=== PATIENT | female | born 1990 | race Caucasian/White ===

== ENCOUNTER 2016-10-26 14:54 | Emergency (ER) | payer OTHER ==
[~2016-10-26] VITALS: Ht 165.1 cm; Wt 68.0 kg
[2016-10-26] MEDS ORDERED: NS IV 1000 ML 1,000 ML IV SCH (16:00)
--- NOTE | 2016-10-26 16:05 | ED Abdominal Pain ---
General Stated Complaint: ABD PAIN Source of Information: Patient Exam Limitations: No Limitations History of Present Illness Time Seen By Provider: 16:02 Initial Comments To ER with reports of bilateral lower quadrant abdominal pain. This is been ongoing off and on for the past month and seems to be worsened by eating. She was seen at [facility] about a week ago and was told this was likely enteritis. They've been following the dietary restrictions and the recommendations from [place] but they deny any improvement. She states that her menstrual period was most recently earlier this month. She has occasional associated nausea without vomiting. Occasional constipation but none lately and no diarrhea. No dysuria and no vaginal discharge. Severity/Quality: Moderate Radiation: No Radiation Activities at Onset: None Associated Symptoms: Nausea/Vomiting Allergies and Home Medications Allergies Coded Allergies: No Known Drug Allergies (Unverified , 10/26/16) Review of Systems Constitutional: see HPI, No chills, No fever EENTM: No Symptoms Reported Respiratory: No Symptoms Reported Cardiovascular: No Symptoms Reported Gastrointestinal: See HPI, Abdominal Pain Genitourinary: No Symptoms Reported Musculoskeletal: no symptoms reported Skin: no symptoms reported Psychiatric/Neurological: No Symptoms Reported Endocrine: No Symptoms Reported Hematologic/Lymphatic: No Symptoms Reported Past Ietxqnl-Mtnvtk-Btgprd Hx Patient Social History Recent Foreign Travel: No Contact w/Someone Who Travel: No Physical Exam Vital Signs VS - Last 72 Hours, by Label 10/26/16 15:50 Temp 97.5 Pulse 80 Resp 20 B/P (MAP) 110/59 Pulse Ox 100 O2 Delivery Room Air Capillary Refill : General Appearance: WD/WN, no apparent distress HEENT: PERRL/EOMI, normal ENT inspection Neck: non-tender, full range of motion Respiratory: no respiratory distress, no accessory muscle use Cardiovascular: regular rate, rhythm, no murmur Gastrointestinal: normal bowel sounds, soft, tenderness Extremities: normal range of motion, non-tender Neurologic/Psychiatric: alert, normal mood/affect, oriented x 3 Skin: normal color, warm/dry Progress/Results/Core Measures Results/Orders Lab Results Laboratory Tests Test 10/26/16 15:53 10/26/16 17:15 Range/Units White Blood Count 8.5 4.3-11.0 10^3/uL Red Blood Count 5.24 4.35-5.85 10^6/uL Hemoglobin 15.6 11.5-16.0 G/DL Hematocrit 47 35-52 % Mean Corpuscular Volume 89 80-99 FL Mean Corpuscular Hemoglobin 30 25-34 PG Mean Corpuscular Hemoglobin Concent 34 32-36 G/DL Red Cell Distribution Width 12.7 10.0-14.5 % Platelet Count 209 130-400 10^3/uL Mean Platelet Volume 9.8 7.4-10.4 FL Neutrophils (%) (Auto) 67 42-75 % Lymphocytes (%) (Auto) 24 12-44 % Monocytes (%) (Auto) 8 0-12 % Eosinophils (%) (Auto) 1 0-10 % Basophils (%) (Auto) 0 0-10 % Neutrophils # (Auto) 5.8 1.8-7.8 X 10^3 Lymphocytes # (Auto) 2.0 1.0-4.0 X 10^3 Monocytes # (Auto) 0.7 0.0-1.0 X 10^3 Eosinophils # (Auto) 0.1 0.0-0.3 10^3/uL Basophils # (Auto) 0.0 0.0-0.1 10^3/uL Erythrocyte Sedimentation Rate 1 0-20 MM/HR Sodium Level 139 135-145 MMOL/L Potassium Level 3.9 3.6-5.0 MMOL/L Chloride Level 106 98-107 MMOL/L Carbon Dioxide Level 26 21-32 MMOL/L Anion Gap 7 5-14 MMOL/L Blood Urea Nitrogen 15 7-18 MG/DL Creatinine 0.80 0.60-1.30 MG/DL Estimat Glomerular Filtration Rate > 60 BUN/Creatinine Ratio 19 Glucose Level 116 H 70-105 MG/DL Calcium Level 9.6 8.5-10.1 MG/DL Total Bilirubin 1.1 H 0.1-1.0 MG/DL Aspartate Amino Transf (AST/SGOT) 110 H 5-34 U/L Alanine Aminotransferase (ALT/SGPT) 84 H 0-55 U/L Alkaline Phosphatase 96 40-136 U/L C-Reactive Protein High Sensitivity 0.05 0.00-0.50 MG/DL Total Protein 7.6 6.4-8.2 GM/DL Albumin 4.5 3.2-4.5 GM/DL Lipase 23 8-78 U/L Urine Color YELLOW Urine Clarity SLIGHTLY CLOUDY Urine pH 6.5 5-9 Urine Specific [place] 1.010 L 1.016-1.022 Urine Protein 2+ H NEGATIVE Urine Glucose (UA) NEGATIVE NEGATIVE Urine Ketones 2+ H NEGATIVE Urine Nitrite NEGATIVE NEGATIVE Urine Bilirubin NEGATIVE NEGATIVE Urine Urobilinogen NORMAL NORMAL MG/DL Urine Leukocyte Esterase 1+ H NEGATIVE Urine RBC (Auto) NEGATIVE NEGATIVE Urine RBC NONE /HPF Urine WBC 2-5 /HPF Urine Squamous Epithelial Cells 25-50 H /HPF Urine Crystals NONE /LPF Urine Bacteria MODERATE H /HPF Urine Casts NONE /LPF Urine Mucus NEGATIVE /LPF Urine Culture Indicated YES My Orders Orders - MARIAMA FERRELL APRN Cbc With Automated Diff (10/26/16 16:00) Comprehensive Metabolic Panel (10/26/16 16:00) Ua Culture If Indicated (10/26/16 16:00) Urine Bedside (10/26/16 16:00) Saline Lock/Iv-Start (10/26/16 16:00) Hs C Reactive Protein (10/26/16 16:00) Erythrocyte Sedimentation Rate (10/26/16 16:00) Ns Iv 1000 Ml (Sodium Chloride 0.9%) (10/26/16 16:00) Ct Abdomen/Pelvis W (10/26/16 16:00) Lipase (10/26/16 16:44) Iohexol Injection (Omnipaque 350 Mg/Ml 1 (10/26/16 17:00) Ns (Ivpb) (Sodium Chloride 0.9% Ivpb Bag (10/26/16 17:00) Us Gallbladder [id number] (10/26/16 17:06) Ketorolac Injection (Toradol Injection) (10/26/16 17:15) Urine Culture (10/26/16 17:15) Medications Given in ED Current Medications Medications Dose Ordered Sig/Ac Route Start Time Stop Time Status Last Admin Dose Admin Iohexol 100 ml ONCE ONCE IV 10/26/16 17:00 10/26/16 17:01 DC 10/26/16 16:55 100 ML Ketorolac Tromethamine 30 mg ONCE ONCE IVP 10/26/16 17:15 10/26/16 17:16 DC 10/26/16 18:05 30 MG Sodium Chloride 100 ml ONCE ONCE IV 10/26/16 17:00 10/26/16 17:01 DC 10/26/16 16:56 80 ML Vital Signs/I&O Vital Sign - Last 12Hours 10/26/16 15:50 Temp 97.5 Pulse 80 Resp 20 B/P (MAP) 110/59 Pulse Ox 100 O2 Delivery Room Air Diagnostic Imaging Diagonstic Imaging: CT Comments NAME: EF[facility] REC#: [id number] PT STATUS: REG ER : 1990 PHYSICIAN: MARIAMA FERRELL APRN ADMIT DATE: 10/26/16/ER Draft Date of Exam:10/26/16 CT ABDOMEN/PELVIS W PROCEDURE: CT abdomen and pelvis with contrast. TECHNIQUE: Multiple contiguous axial images were obtained through the abdomen and pelvis after administration of intravenous contrast. INDICATION: Abdominal pain, cramping, nausea. FINDINGS: The liver, gallbladder, bile ducts, spleen, adrenals, and pancreas are unremarkable. The appendix is visualized and unremarkable. The uterus, adnexa, and urinary bladder are unremarkable. There is no bowel, biliary, or urinary tract obstruction. No ascites, abscess, hematoma, or other fluid collection. No pneumatosis or free air. No abdominal wall defect. The osseous structures are nonacute. IMPRESSION: No acute-appearing abnormality. Dictated on workstation # [id number] Dict: 10/26/16 1707 Trans: 10/26/16 1712 [id number] Interpreted by: VENITA VELASQUEZ Electronically signed by: Departure Impression Impression: Primary Impression: Abdominal cramping Additional Impression: Nausea Disposition: 01 HOME, SELF-CARE Condition: Stable Departure-Patient Inst. Decision time for Depature: 18:22 Referrals: NO,LOCAL PHYSICIAN (PCP/Family) Primary Care Physician Patient Instructions: IRRITABLE BOWEL SYNDROME Add. Discharge Instructions: 1. Take the medication as directed 2. If you do not have a regular physician, call the [facility] tomorrow to make an appointment to be seen as you do not have to have income to be seen there. Your symptoms warrant further workup in the outpatient setting Scripts Dicyclomine HCl (Bentyl) 10 Mg Capsule 10 MG PO QID, #40 CAP Prov: MARIAMA FERRELL APRN 10/26/16 MARIAMA FERRELL APRN Oct 26, 2016 16:04
[2016-10-26 16:10] LABS: BASOPHILS % (AUTO) 0 % (0-10); EOSINOPHILS # (AUTO) 0.1 10^3/uL (0.0-0.3); EOSINOPHILS % (AUTO) 1 % (0-10); LYMPHOCYTES % (AUTO) 24 % (12-44); MEAN CORPUSCULAR HEMOGLOBIN 30 PG (25-34); MEAN CORPUSCULAR HGB CONC 34 G/DL (32-36); MEAN CORPUSCULAR VOLUME 89 FL (80-99); MEAN PLATELET VOLUME 9.8 FL (7.4-10.4); MONOCYTES # (AUTO) 0.7 X 10^3 (0.0-1.0); MONOCYTES % (AUTO) 8 % (0-12); NEUTROPHILS # (AUTO) 5.8 X 10^3 (1.8-7.8); NEUTROPHILS % (AUTO) 67 % (42-75); PLATELET COUNT 209 10^3/uL (130-400); RED BLOOD COUNT 5.24 10^6/uL (4.35-5.85); RED CELL DISTRIBUTION WIDTH 12.7 % (10.0-14.5); WHITE BLOOD COUNT 8.5 10^3/uL (4.3-11.0)
[2016-10-26 16:32] LABS: ALANINE AMINOTRANSFERASE 84 U/L (0-55); ALBUMIN 4.5 GM/DL (3.2-4.5); ANION GAP 7 MMOL/L (5-14); ASPARTATE AMINO TRANSFERASE 110 U/L (5-34); BILIRUBIN,TOTAL 1.1 MG/DL (0.1-1.0); BLOOD UREA NITROGEN 15 MG/DL (7-18); BUN/CREATININE RATIO 19; CALCIUM 9.6 MG/DL (8.5-10.1); CARBON DIOXIDE 26 MMOL/L (21-32); CHLORIDE 106 MMOL/L (98-107); GFR ESTIMATED > 60; GLUCOSE 116 MG/DL (70-105); POTASSIUM 3.9 MMOL/L (3.6-5.0); SODIUM 139 MMOL/L (135-145); TOTAL PROTEIN 7.6 GM/DL (6.4-8.2); hs C REACTIVE PROTEIN 0.05 MG/DL (0.00-0.50)
[2016-10-26 16:33] LABS: ERYTHROCYTE SEDIMENTATION RATE 1 MM/HR (0-20)
[2016-10-26] MEDS ORDERED: NS 100 ML (IVPB) BAG IV ONE (17:00)
[2016-10-26] MEDS ORDERED: IOHEXOL 350 MG/ML 100 ML (OMNIPAQUE 350) VIAL IV ONE (17:00)
--- NOTE | 2016-10-26 17:12 | Diagnostic Imaging Report ---
PROCEDURE: CT abdomen and pelvis with contrast. TECHNIQUE: Multiple contiguous axial images were obtained through the abdomen and pelvis after administration of intravenous contrast. INDICATION: Abdominal pain, cramping, nausea. FINDINGS: The liver, gallbladder, bile ducts, spleen, adrenals, and pancreas are unremarkable. The appendix is visualized and unremarkable. The uterus, adnexa, and urinary bladder are unremarkable. There is no bowel, biliary, or urinary tract obstruction. No ascites, abscess, hematoma, or other fluid collection. No pneumatosis or free air. No abdominal wall defect. The osseous structures are nonacute. IMPRESSION: No acute-appearing abnormality. Dictated by: Dictated on workstation # [id number]
[2016-10-26] MEDS ORDERED: KETOROLAC 30 MG/ML VIAL IVP ONE (17:15)
[2016-10-26 17:22] LABS: BILIRUBIN,URINE NEGATIVE (NEGATIVE); KETONES,URINE 2+ (NEGATIVE); LEUKOCYTE ESTERASE ,URINE 1+ (NEGATIVE); NITRITE,URINE NEGATIVE (NEGATIVE); PH,URINE 6.5 (5-9); PROTEIN,URINE 2+ (NEGATIVE); UROBILINOGEN,URINE NORMAL (NORMAL)
[2016-10-26 17:31] LABS: SQUAMOUS EPITHELIAL CELL,UR 25-50 /HPF
--- NOTE | 2016-10-26 18:17 | Diagnostic Imaging Report ---
PROCEDURE: US gallbladder. TECHNIQUE: Multiple real-time grayscale images were obtained over the right upper quadrant in various projections. INDICATION: Epigastric pain of one week's duration. No previous for direct comparison study however correlated with CT performed earlier this same date. Gallbladder contains no luminal stone or sludge. It is slightly contracted, its wall is non-thickened. There is no para cholecystic fluid and Olivo's sign was negative. Te liver parenchyma appeared normal. There is no perihepatic fluid collection. The unobstructed right kidney is normal is in size cortical thickness and echotexture. Extrahepatic bile duct obscured. No intrahepatic dilatation. The pancreas is obscured. IMPRESSION: Normal gallbladder. No intrahepatic biliary dilatation. No perihepatic ascites. Negative right kidney. Dictated by: Dictated on workstation # [id number]
[2016-10-26] MEDS ORDERED: DICY10CA59 PO (18:23)
[2016-10-26 18:35] VITALS: BP 110/59
[2016-10-29] MEDS ORDERED: PENI500T PO (08:26)
== END 2016-10-26 18:35 | disposition home or self-care (01) ==
LOC: ER 14:57
DX: R10.31 Right lower quadrant pain (principal); R10.32 Left lower quadrant pain; R11.2 Nausea with vomiting, unspecified; Z87.19 Personal history of other diseases of the digestive system
CPT/HCPCS: 36415; 74177; 76705; 80053; 81000; 83690; 85025; 85652; 86141; 87088; 96361; 96374

== ENCOUNTER → 2021-06-14 | Outpatient (CLI) | payer BC ==
[~2021-06-14] MED LIST: DICY10CA59 PO; PENI500T PO; RT-ALBUTEROL SULF 2.5 MG/3 ML PRE-MIX VIAL INH ONE
== END ==
LOC: RT 14:15
PROVIDERS: ATTEND Nurse Practitioner Family
DX: Z13.83 Encounter for screening for respiratory disorder NEC (principal)
CPT/HCPCS: 94060; 94726; 94729